=== PATIENT | male | born 1980 | race Caucasian/White ===

== ENCOUNTER 2018-09-06 20:34 | Inpatient (IN) | payer SELFPAY ==
[~2018-09-06] VITALS: Ht 182.9 cm; Wt 102.5 kg
[2018-09-06 00:45] VITALS: BP 152/76
[2018-09-06 20:45] VITALS: BP 136/64
--- NOTE | 2018-09-06 20:45 | NUR ---
TO BED # 2 AMBULATORY, REPORT GIVEN TO LETHA MONAE
--- NOTE | 2018-09-06 20:47 | NUR ---
Andriy mari in [facility] - 09/06/18 at 2049 by ALDO PT TAKEN TO BED 2
--- NOTE | 2018-09-06 20:59 | NUR ---
38/M presents to ED with complaints of left lower abdominal pain swelling, erythema for the past 5 days. Patient states he had to leave work early because he could not stand the pain. Pt c/o severe pain. NAD noted. VSS. Pt denies N/V/D. Afebrile. AOX4, clear speech.
--- NOTE | 2018-09-06 22:20 | NUR ---
Dr. Molina evaluating patient at bedside.
[2018-09-06] MEDS ORDERED: NACL 0.9% 1,000 ML IV SCH (22:25)
[2018-09-06] MEDS ORDERED: cefTRIAXone 1,000 MG in DEXT 5% MINI-BAG PLUS 50 ML IV ONE (22:25)
[2018-09-06] MEDS ORDERED: MORPHINE SULFATE 4 MG/ML SYR IVP ONE (22:30)
[2018-09-06] MEDS ORDERED: cefTRIAXone 1,000 MG VIAL ONE (22:45)
[2018-09-06 23:00] LABS: HEMATOCRIT 37.3 % (36-52); HEMOGLOBIN 11.7 g/dL (12.0-18.0); MEAN CORPUSCULAR HEMOGLOBIN 28 pg (27-31); MEAN CORPUSCULAR HGB CONC 31 g/dL (33-37); MEAN CORPUSCULAR VOLUME 88.5 fL (80-94); PLATELET COUNT (AUTO) 568 K/uL (140-450); RED BLOOD CELL COUNT(AUTO) 4.21 MIL/uL (4.20-6.10); RED CELL DISTRIBUTION WIDTH 13.8 % (11.6-13.7)
--- NOTE | 2018-09-06 23:02 | NUR ---
Pt provided with a blanket, lights dimmed in room, call light left within reach. Pt expresses feeling better after pain medication.
[2018-09-06 23:09] LABS: LYMPHOCYTES % (MANUAL) 3 % (20-46); MONOCYTES % (MANUAL) 2 % (5-12)
[2018-09-06 23:11] LABS: ALBUMIN 2.3 g/dL (3.4-5.0); ANION GAP 9.2 (8-16); CARBON DIOXIDE 32.5 mmol/L (21-32); CREATININE 0.9 mg/dL (0.7-1.3); POTASSIUM 3.7 mmol/L (3.5-5.1); TOTAL BILIRUBIN 0.9 mg/dL (0.0-1.0)
--- NOTE | 2018-09-06 23:21 | NUR ---
Pt taken to CT via rdemar.
--- NOTE | 2018-09-06 23:40 | NUR ---
PT RETURN FROM CT
[2018-09-07] VITALS (10 sets, daily range): BP systolic 94–150; BP diastolic 56–72
[2018-09-07] MEDS ORDERED: MORPHINE SULFATE 4 MG/ML SYR IVP ONE (00:15)
[2018-09-07] MEDS ORDERED: NACL 0.9% 1,000 ML IV SCH (00:16)
[2018-09-07 00:19] LABS: APPEARANCE,URINE CLEAR (CLEAR); BILIRUBIN,URINE 1+ (NEGATIVE); BLOOD, URINE TRACE-I (NEGATIVE); COLOR,URINE YELLOW (YELLOW); LEUKOCYTE ESTERASE ,URINE NEGATIVE (NEGATIVE); NITRITE, URINE NEGATIVE (NEGATIVE); PH,URINE 5.5 (5.0-9.0); UGLUCOSE NEGATIVE (NEGATIVE)
[2018-09-07] MEDS ORDERED: LORazepam 2 MG/ML VIAL IM/IVP PRN (00:20)
[2018-09-07] MEDS ORDERED: ONDANSETRON 4 MG/2 ML VIAL IM/IVP PRN (00:20)
[2018-09-07] MEDS ORDERED: DOCUSATE SODIUM 100 MG GELCAP PO PRN (00:20)
[2018-09-07 00:29] LABS: HYALINE CASTS, URINE 0-10 /LPF (None Seen); RBC,URINE 0-5 (RARE) /HPF (0-5); WBC,URINE 0-5 (RARE) /HPF (0-5)
[2018-09-07] MEDS ORDERED: MORPHINE SULFATE 4 MG/ML SYR ONE (00:34)
[2018-09-07 00:40] LABS: BARBITURATE, URINE NEG. ng/ml (NEG <=200); BENZODIAZEPINE, URINE NEG. ng/mL (NEG <=200); CANNABINOID, URINE NEG. ng/mL (NEG <=50); COCAINE, URINE NEG. ng/mL (NEG <=300); OPIATE, URINE POS. ng/mL (NEG <=2000); PHENCYCLIDINE SCREEN,URINE NEG. ng/mL (NEG <=25)
--- NOTE | 2018-09-07 00:42 | NUR ---
Patient will be admitted to care of Dr. Olvera. Admited to Med/Surg. Will go to room 105A. Belongings list completed. Report to Leatha SPENCER. Patient transport to floor via gurney.
--- NOTE | 2018-09-07 00:45 | NUR ---
Admitted from ER TO MED SURGICAL UNIT , with chief complaint of REDNESS, PAIN AND SWELLING,ON THE LEFT SIDE OF ABDOMEN , 38 y/o ,Male, Cooperative, AWAKE, A/OX4. RESPIRATION EVEN AND UNLABORED. IV SALINE LOCK AT THE LEFT AC G20, PATENT AND INTACT. ABLE TO AMBULATE INDEPENDENTLY. REDNESS AND SWELLING NOTED AT THE LEFT ABDOMEN, TENDER TO TOUCH, PAIN IN THE SITE 2/10, WAS GIVEN PAIN MEDICATION IN ER. PLAN OF CARE DISCUSSED. VERBALIZED UNDERSTANDING. oriented to call light, bed, phone,television, bathroom, smoking policy,visiting hours, procedures, ID bracelet on. Belongings list checked.
[2018-09-07 00:52] LABS: MAGNESIUM 1.8 mg/dL (1.8-2.4); PHOSPHORUS 3.1 mg/dL (2.5-4.9); THYROID STIMULATING HORMONE 1.22 uIU/mL (0.34-3.74)
[2018-09-07 01:01] LABS: PROTHROMBIN TIME 13.1 secs (10.8-13.4)
--- NOTE | 2018-09-07 01:10 | NUR ---
Patient's Plan of Care was discussed and reviewed with HORSE RIDING COACH OR INSTRUCTOR: JANE.
[2018-09-07] MEDS ORDERED: PIPERACILLIN/TAZOBACTAM 3.375 GM VIAL IV ONE ×2 (01:40→05:44)
[2018-09-07] MEDS: ACETAMINOPHEN 325 MG TAB PO PRN ×2 (01:45→08:47)
[2018-09-07] MEDS: DEXT 5% / NACL 0.9% 500 ML IV SCH ×2 (01:45→08:14)
--- NOTE | 2018-09-07 01:45 | NUR ---
TEMPERATURE CHECKED - 100.2 F, MEDICATED WITH TYLENOL 650MG. PO ORDERED. NPO, ICE CHIPS GIVEN.
[2018-09-07] MEDS: PIPER/TAZO 3.375GM/D5W PREMIX 50 ML IV SCH ×4 (01:50→18:45)
--- NOTE | 2018-09-07 01:50 | NUR ---
MEDICATED WITH ZOSYN PER MD ORDER BY DOV HOLLEY. WILL MONITOR FOR ANY REACTION.
[2018-09-07] MEDS ORDERED: INFLUENZA VIRUS VACCINE QUAD 0.5 ML SYR IMVAC PRN (02:10)
--- NOTE | 2018-09-07 02:30 | NUR ---
NO ALLERGIC REACTION NOTED.
[2018-09-07] MEDS ORDERED: BENZONATATE 100 MG CAPLF PO PRN (04:40)
[2018-09-07 06:52] LABS: HEMATOCRIT 32.9 % (36-52); HEMOGLOBIN 10.4 g/dL (12.0-18.0); MEAN CORPUSCULAR HEMOGLOBIN 28 pg (27-31); MEAN CORPUSCULAR HGB CONC 32 g/dL (33-37); MEAN CORPUSCULAR VOLUME 88.8 fL (80-94); PLATELET COUNT (AUTO) 476 K/uL (140-450); RED CELL DISTRIBUTION WIDTH 13.9 % (11.6-13.7); WHITE BLOOD COUNT (AUTO) 18.9 K/uL (4.8-10.8)
--- NOTE | 2018-09-07 07:00 | NUR ---
DR. GRIFFITH SPOKE WITH PATIENT, PLANNING TO DO SURGERY.
--- NOTE | 2018-09-07 07:10 | NUR ---
ENDORSED TO AM SHIFT NURSE FOR CONTINUITY OF CARE.
--- NOTE | 2018-09-07 07:11 | NUR ---
RECEIVED BEDSIDE REPORT FROM SPRING UPHOLSTERER NURSE. PATIENT IS AWAKE, ALERT AND ORIENTEDX4. NO SIGNS OF DISTRESS ON RA. SKIN IS INTACT, ABSCESS ON ABD. PATIENT NPO FOR I&D TODAY. CONSENT WILL BE OBTAINED. GAIT IS STEADY. PATIENT IS CONTINENT. MED SURGE. IV ON L AC 20G INFUSING D5NS AT 70. CLEAN, DRY AND INTACT. NO COMPLAINTS AT THIS TIME. BED IN LOW POSITION. CALL LIGHT WITHIN REACH, WILL CONTINUE TO MONITOR THE PATIENT
[2018-09-07 07:24] LABS: CARBON DIOXIDE 31.9 mmol/L (21-32); CREATININE 0.9 mg/dL (0.7-1.3); POTASSIUM 3.9 mmol/L (3.5-5.1)
[2018-09-07 07:26] LABS: MAGNESIUM 1.7 mg/dL (1.8-2.4); PHOSPHORUS 4.6 mg/dL (2.5-4.9)
[2018-09-07 07:41] LABS: LYMPHOCYTES % (MANUAL) 8 % (20-46); MONOCYTES % (MANUAL) 5 % (5-12)
[2018-09-07] MEDS: LACTOBACILLUS RHAMNOSUS GG 1 EACH CAP PO SCH (08:55)
--- NOTE | 2018-09-07 08:59 | NUR ---
ADMINISTERED MEDS. ADMINISTERED PRN TYLENOL FOR FEVER OF 101.2. PATIENT TOLERATED WELL. WILL CONTINUE TO MONITOR THE PATIENT. PATIENT AMBULATED TO THE RESTROOM AND BACK TO BED.
[2018-09-07] MEDS ORDERED: ALBUTEROL SULFATE/IPRATROPIU 3 ML SOL IH PRN (09:10)
--- NOTE | 2018-09-07 10:00 | NUR ---
PATIENT SALINE LOCKED, AND PICKED UP BY OR NURSES. PATIENT LEFT IN STABLE CONDITION
[2018-09-07] MEDS ORDERED: ONDANSETRON 4 MG/2 ML VIAL ONE (10:18)
[2018-09-07] MEDS ORDERED: LIDOCAINE 2% 100 MG/5 ML SYR IVP ONE (10:18)
[2018-09-07] MEDS ORDERED: PROPOFOL 200 MG/20 ML VIAL IV ONE (10:18)
[2018-09-07] MEDS ORDERED: SUCCINYLCHOLINE CHLORIDE 200 MG/10 ML VIAL IVP ONE (10:18)
[2018-09-07] MEDS ORDERED: DEXAMETHASONE 4 MG/ML VIAL ONE (10:18)
[2018-09-07] MEDS ORDERED: KETOROLAC 30 MG/ML VIAL ONE (10:18)
[2018-09-07] MEDS ORDERED: DESFLURANE 240 ML BTL INH ONE (10:18)
[2018-09-07] MEDS ORDERED: BUPIVACAINE-MPF 0.25% 30 ML VIAL INJ ONE (10:29)
[2018-09-07] MEDS ORDERED: fentaNYL 0.05 MG/ML VIAL ONE (10:35)
[2018-09-07] MEDS ORDERED: MIDAZOLAM 2 MG/2 ML VIAL ONE (10:35)
[2018-09-07] MEDS ORDERED: ONDANSETRON 4 MG/2 ML VIAL IVP PRN (11:00)
[2018-09-07] MEDS ORDERED: HYDROmorphone 1 MG/ML AMP IVP PRN (11:00)
--- NOTE | 2018-09-07 13:02 | NUR ---
PATIENT BACK FROM OR. PATIENT IS STABLE CONDITION. L ABD ABSCESS I&D DONE. PACKED AND ABD PAD W ABD BINDER. VITALS WITHIN NORMAL LIMITS
--- NOTE | 2018-09-07 14:43 | NUR ---
PATIENT IN NO SIGNS OF DISTRESS. BED IN LOW POSITION. CALL LIGHT WITHIN REACH, WILL CONTINUE TO MONITOR THE PATIENT
--- NOTE | 2018-09-07 15:10 | NUR ---
FAMILY AT BEDSIDE. WILL CONTINUE TO MONITOR
--- NOTE | 2018-09-07 17:00 | NUR ---
PATIENT IS SLEEPING. NO SIGNS OF DISTRESS. WILL CONTINUE TO MONITOR
[2018-09-07] MEDS: NACL 0.9% 1,000 ML IV SCH (18:39)
--- NOTE | 2018-09-07 18:50 | NUR ---
ADMINISTERED MEDS. PATIENT TOLERATED WELL.
[2018-09-07] MEDS ORDERED: MAGNESIUM OXIDE 400 MG TAB PO SCH (19:00)
--- NOTE | 2018-09-07 19:30 | NUR ---
GAVE BEDSIDE REPORT FROM FACILITIES MAINTENANCE TECHNICIAN NURSE. PATIENT ENDORSED IN STABLE CONDITION
--- NOTE | 2018-09-07 19:31 | NUR ---
RECD. RESTING IN BED, AWAKE, A/OX4. RESPIRATION EVEN AND UNLABORED. WATCHING TV. IV OF NS AT 60 ML/HR INFUSING, LEFT AC G20. INCISION IN THE LEFT ABDOMEN COVERED WITH DRESSING WITH ABDOMINAL BINDER, DRY AND INTACT. ON BILATERAL LEG SEQUENTIALS. TOLERATING CLEAR LIQUIDS. ADVISED TO GO OUT OF BED AND AMBULATE. PLAN OF CARE FOR THE SHIFT DISCUSSED. VERBALIZED UNDERSTANDING. DENIES PAIN 0/10.
--- NOTE | 2018-09-07 20:00 | NUR ---
Patient's Plan of Care was discussed and reviewed with FOAM MOLDER: STEVE LARA
[2018-09-08] VITALS: BP 120/60
--- NOTE | 2018-09-08 | NUR ---
SLEEPING COMFORTABLY IN BED.
[2018-09-08] MEDS: PIPER/TAZO 3.375GM/D5W PREMIX 50 ML IV SCH ×4 (00:12→17:29)
[2018-09-08] MEDS: HYDROcodone/APAP 5/325 MG 1 TAB TAB PO PRN ×2 (01:04→06:42)
[2018-09-08 04:00] VITALS: BP 106/58
--- NOTE | 2018-09-08 04:00 | NUR ---
ENCOURAGED TO TURN ALTERNATELY TO SIDES. DEMONSTRATED HOW TO USE INCENTIVE SPIROMETER. WANTS TO DO IT DURING THE MORNING.
--- NOTE | 2018-09-08 06:45 | NUR ---
AWAKE IN BED, DR. MORRIS CAME AND CHECKED PATIENT. COMPLAINT OF SWEATING, TEMPERATURE CHECKED - 97.9F. CONDITION REMAIN STABLE. WILL ENDORSED TO AM NURSE FOR CONTINUITY OF CARE.
[2018-09-08 06:50] LABS: CHOL/HDL RATIO 5.9 (1-4.5)
--- NOTE | 2018-09-08 07:20 | NUR ---
RECEIVED PT FROM SHIP PILOT NURSE, PT IS AWAKE AND LYING ON THE BED WITH SIDE RAILS UP AND CALL LIGHT WITHIN REACH, PT HAS AN IV LINE ON THE LEFT AC G. 20 WITH NS INFUSING AT 60ML/HR, INTACT, PT IS S/P I&D OF THE ABDOMINAL ABSCESS WITH ABDOMINAL BINDER IN PLACE, PT VERBALIZED A TOLERABLE PAIN LEVEL OF 4/10. NO SIGN OF DISTRESS NOTED AND WILL CONTINUE TO MONITOR PT.
--- NOTE | 2018-09-08 07:50 | NUR ---
PT IS AWAKE AND VITAL SIGNS TAKEN AND IS WITHIN NORMAL LIMIT. NO SIGN OF DISTRESS NOTED AND WILL CONTINUE TO MONITOR PT.
[2018-09-08 08:00] VITALS: BP 105/54
[2018-09-08] MEDS ORDERED: MAG SULF 2000 MG/WATER PREMIX 50 ML IV SCH (08:00)
--- NOTE | 2018-09-08 08:23 | NUR ---
PATIENT HAS BEEN SCREENED AND CATEGORIZED HIGH NUTRITION RISK. PATIENT WILL BE SEEN WITHIN 1-2 DAYS OF ADMISSION. 09/08/[address]
[2018-09-08] MEDS: LORATADINE 10 MG TAB PO SCH (09:55)
[2018-09-08] MEDS: LACTOBACILLUS RHAMNOSUS GG 1 EACH CAP PO SCH (09:55)
--- NOTE | 2018-09-08 10:02 | NUR ---
PT IS AWAKE AND MOTHER ON THE BEDSIDE, ORAL MEDICATIONS GIVEN, V/S TAKEN PARAMETER AND IS WITHIN NORMAL LIMIT.NO SIGN OF DISTRESS NOTED AND WILL MONITOR PT.
[2018-09-08 12:00] VITALS: BP 110/55
--- NOTE | 2018-09-08 12:37 | NUR ---
PT AAO, ANTIBIOTIC ONGOING WELL TOLERATED.
--- NOTE | 2018-09-08 14:38 | NUR ---
09/08/18 RD INITIAL ASSESSMENT COMPLETED PLEASE REFER TO NUTRITION ASSESSMENT UNDER CARE ACTIVITY FOR ESTIMATED NUTRITIONAL NEEDS. 1. CONTINUE FULL LIQUID DIET TOLERATED 2. RD PROVIDED NUTRITION EDUCATION ON HEALTHY CHOLESTEROL 3. WHEN PATIENT IS ABLE TO TOLERATE A FULL LIQUID DIET CONSIDER ADVANCING TO A HIGH FIBER REGULAR DIET 4. RD TO FOLLOW-UP 5-7 DAYS, LOW RISK JANETH KRISHNAMURTHY, RD
[2018-09-08 16:00] VITALS: BP 112/62
[2018-09-08] MEDS: MORPHINE SULFATE 2 MG/ML SYR IVP PRN ×2 (16:23→20:39)
[2018-09-08] MEDS: NACL 0.9% 1,000 ML IV SCH (16:36)
--- NOTE | 2018-09-08 17:30 | NUR ---
PT IS AWAKE AND IV ZOSYN WAS GIVEN VIA PIGGYBACK AND PT TOLERATED IT. NO SIGN OF DISTRESS NOTED ON THE PT, DENIES PAIN NOW AND WILL MONITOR PT.
--- NOTE | 2018-09-08 18:15 | NUR ---
PT'S ABDOMINAL BINDER WAS SOAKED WITH DRAINAGE, DR. ROBLEDO MADE A VERBAL ORDER TO CHANGE AND REINFORCED SURGICAL WOUND WITH A CLEAN DRESSING AND ABDOMINAL BINDER.
--- NOTE | 2018-09-08 19:15 | NUR ---
ENDORSED PT TO CLINICAL PROJECT ASSISTANT NURSEMARY GRACE FOR CONTINUITY OF CARE. PT IS STABLE AT THIS TIME.
--- NOTE | 2018-09-08 19:16 | NUR ---
RECEIVED BEDSIDE REPORT FROM DAY SHIFT RN. PT IS A&OX4. ON ROOM AIR. NO S/S OF DISTRESS. PT HAS IV LINE ON THE LEFT AC G. 20 WITH NS INFUSING AT 60ML/HR. PT IS S/P I&D OF THE ABDOMINAL ABSCESS WITH DR GRIFFITH ON 09/07/18. HAS ABDOMINAL BINDER IN PLACE PT VERBALIZED A TOLERABLE PAIN LEVEL OF 5/10. DOESNT WANT PAIN MEDICATION AT THIS TIME. CALL LIGHT WITHIN REACH. WILL CONTINUE TO MONITOR PT.
[2018-09-08] MEDS: PSYLLIUM 12.2 GM/PKT PO SCH (20:41)
--- NOTE | 2018-09-08 20:41 | NUR ---
DUE MEDICATION GIVEN. REINFORCED DRESSING. HAD MODERATE PURULENT DRAINAGE. WILL CONTINUE TO MONITOR. CALL LIGHT WITHIN REACH.
[2018-09-08] MEDS: ZOLPIDEM 5 MG TAB PO PRN (21:09)
[2018-09-09] VITALS: BP 115/67
[2018-09-09] MEDS: PIPER/TAZO 3.375GM/D5W PREMIX 50 ML IV SCH ×5 (00:02→23:47)
--- NOTE | 2018-09-09 00:02 | NUR ---
VS ARE WITHIN NORMAL LIMITS. ZOSYN NOW INFUSING PER ORDERS. ALL NEEDS MET AT THIS TIME. CALL LIGHT WITHIN REACH.
--- NOTE | 2018-09-09 01:56 | NUR ---
PT SLEEPING NO S/S OF DISTRESS. WILL CONTINUE TO MONITOR.
--- NOTE | 2018-09-09 03:23 | NUR ---
PT SLEEPING NO S/S OF DISTRESS. WILL CONTINUE TO MONITOR.
--- NOTE | 2018-09-09 05:16 | NUR ---
ZOSYN NOW INFUSING PER ORDERS. REINFORCED PTS DRESSING. PT TOLERATED WELL. CALL LIGHT WITHIN REACH. WILL CONTINUE TO MONITOR.
[2018-09-09] MEDS: NACL 0.9% 1,000 ML IV SCH ×2 (05:17→20:26)
[2018-09-09] MEDS: HYDROcodone/APAP 5/325 MG 1 TAB TAB PO PRN (05:30)
[2018-09-09 06:41] LABS: ANION GAP 10.7 (8-16); CARBON DIOXIDE 30.1 mmol/L (21-32); CREATININE 0.7 mg/dL (0.7-1.3); POTASSIUM 3.8 mmol/L (3.5-5.1)
[2018-09-09 06:54] LABS: PHOSPHORUS 3.6 mg/dL (2.5-4.9)
[2018-09-09] MEDS ORDERED: HYDROcodone/APAP 5/325 MG 1 TAB TAB PO PRN (06:55)
[2018-09-09] MEDS: MORPHINE SULFATE 2 MG/ML SYR IVP PRN ×2 (07:01→09:50)
--- NOTE | 2018-09-09 07:22 | NUR ---
ENDORSED PT TO DAY SHIFT RN. PT IS IN STABLE CONDITION. SAFETY MEASURES ARE IN PLACE.
--- NOTE | 2018-09-09 07:27 | NUR ---
RECEIVED PT FROM UNDERWRITING ASSISTANT NURSEMARY GRACE, PT IS AWAKE AND LYING ON THE BED WITH SIDE RAILS UP AND CALL LIGHT WITHIN REACH, PT PONCE A PERIPHERAL LINE ON THE LEFT AC G. 20 WITH NS INFUSING AT 60ML/HR, INTACT. PT VERBALIZED A PAIN RATE OF 8/10 ON THE LEFT ABDOMINAL SIDE AND WILL MEDICATE, NO OTHER UNTOWARD SYMPTOM NOTED AND WILL CONTINUE TO MONITOR PT.
[2018-09-09 08:00] VITALS: BP 115/58
[2018-09-09 08:18] LABS: BASOPHILS # (AUTO) 0.1 K/uL (0.00-0.22); BASOPHILS % (AUTO) 0.5 % (0.0-2.0); EOSINOPHILS # (AUTO) 0.1 K/uL (0-0.4); EOSINOPHILS % (AUTO) 1.1 % (0.0-4.0); HEMATOCRIT 29.1 % (36-52); HEMOGLOBIN 9.2 g/dL (12.0-18.0); LYMPHOCYTES # (AUTO) 1.9 K/uL (2.0-11.5); LYMPHOCYTES % (AUTO) 15.5 % (20.5-51.1); MEAN CORPUSCULAR HEMOGLOBIN 28 pg (27-31); MEAN CORPUSCULAR HGB CONC 32 g/dL (33-37); MEAN CORPUSCULAR VOLUME 89.3 fL (80-94); MONOCYTES # (AUTO) 0.7 K/uL (0.8-1.0); MONOCYTES % (AUTO) 6.1 % (1.7-9.3); NEUTROPHILS # (AUTO) 9.5 K/uL (1.8-7.7); NEUTROPHILS % (AUTO) 76.8 % (42.2-75.2); PLATELET COUNT (AUTO) 477 K/uL (140-450); RED BLOOD CELL COUNT(AUTO) 3.26 MIL/uL (4.20-6.10); RED CELL DISTRIBUTION WIDTH 14.2 % (11.6-13.7); WHITE BLOOD COUNT (AUTO) 12.3 K/uL (4.8-10.8)
[2018-09-09] MEDS: LORATADINE 10 MG TAB PO SCH (09:48)
[2018-09-09] MEDS: LACTOBACILLUS RHAMNOSUS GG 1 EACH CAP PO SCH (09:48)
[2018-09-09] MEDS: PSYLLIUM 12.2 GM/PKT PO SCH ×2 (09:49→20:25)
[2018-09-09] MEDS: ENOXAPARIN 40 MG/0.4 ML SYR SUBQ SCH (09:51)
--- NOTE | 2018-09-09 11:23 | NUR ---
PT IS AWAKE AND IV ZOSYN WAS GIVEN VIA PIGGYBACK. NO SIGN OF DISTRESS NOTED AND WILL MONITOR PT.
[2018-09-09 16:00] VITALS: BP 124/75
--- NOTE | 2018-09-09 16:30 | NUR ---
PT GOT UP AND WAS ASSISTED TO SIT ON THE CHAIR AND AMBULATED TO THE BATHROOM, NO SOB NOTED AND PT TOLERATED IT. NO SIGN OF DISTRESS NOTED AND WILL MONITOR PT.
--- NOTE | 2018-09-09 17:35 | NUR ---
PT IS AWAKE AND ASSISTED TO AMBULATE TO THE BATHROOM AND BACK TO THE CHAIR, PT DENIES SOB AND VERBALIZED A TOLERABLE PAIN WHILE WALKING, IV ZOSYN WAS GIVEN VIA PIGGYBACK, PT'S DINNER TRAY WAS SERVED. NO SIGN OF DISTRESS NOTED AND WILL MONITOR PT.
--- NOTE | 2018-09-09 19:20 | NUR ---
ENDORSED PT TO PSYCHOLOGIST PRIVATE PRACTICE NURSEMARY GRACE FOR CONTINUITY OF CARE, PT IS STABLE AT THIS TIME.
--- NOTE | 2018-09-09 19:21 | NUR ---
RECEIVED BEDSIDE REPORT FROM DAY SHIFT RN. PT IS A&OX4. ON ROOM AIR. NO S/S OF DISTRESS. PT HAS IV LINE ON THE LEFT AC G. 20 WITH NS INFUSING AT 60ML/HR. PT IS S/P I&D OF THE ABDOMINAL ABSCESS WITH DR GRIFFITH ON 09/07/18. HAS ABDOMINAL BINDER IN PLACE. DRESSING IS INTACT AND DRY. PT VERBALIZED A TOLERABLE PAIN LEVEL OF 2/10. DOESN'T WANT PAIN MEDICATION AT THIS TIME. CALL LIGHT WITHIN REACH. WILL CONTINUE TO MONITOR PT.
--- NOTE | 2018-09-09 20:25 | NUR ---
DUE MEDICATIONS GIVEN. PT TOLERATED WELL. ALL NEEDS MET AT THIS TIME. CALL LIGHT WITHIN REACH.
[2018-09-09] MEDS: ZOLPIDEM 5 MG TAB PO PRN (22:32)
--- NOTE | 2018-09-09 22:32 | NUR ---
JONATAN ADMINISTERED. PT STATES IT HELPED HIM SLEEP LAST NIGHT. AND HAS BEEN HAVING DIFFICULTY SLEEPING SINCE ADMISSION. WILL CONTINUE TO MONITOR.
--- NOTE | 2018-09-09 23:47 | NUR ---
VITAL SIGNS ARE WITHIN NORMAL LIMITS. ZOSYN NOW INFUSING PER ORDERS. ALL NEEDS MET AT THIS TIME. WILL CONTINUE TO MONITOR.
[2018-09-10 00:03] VITALS: BP 122/70
--- NOTE | 2018-09-10 02:30 | NUR ---
PT SLEEPING COMFORTABLY IN BED. CALL LIGHT WITHIN REACH.
[2018-09-10] MEDS: HYDROcodone/APAP 5/325 MG 1 TAB TAB PO PRN ×2 (03:29→09:27)
[2018-09-10] MEDS: PIPER/TAZO 3.375GM/D5W PREMIX 50 ML IV SCH ×4 (05:10→23:33)
--- NOTE | 2018-09-10 05:10 | NUR ---
ZOSYN NOW INFUSING PER ORDERS. CALL LIGHT WITHIN REACH.
[2018-09-10 06:00] LABS: BASOPHILS # (AUTO) 0.1 K/uL (0.00-0.22); BASOPHILS % (AUTO) 0.6 % (0.0-2.0); EOSINOPHILS # (AUTO) 0.3 K/uL (0-0.4); EOSINOPHILS % (AUTO) 2.8 % (0.0-4.0); HEMATOCRIT 30.3 % (36-52); HEMOGLOBIN 9.6 g/dL (12.0-18.0); LYMPHOCYTES # (AUTO) 1.9 K/uL (2.0-11.5); LYMPHOCYTES % (AUTO) 18.9 % (20.5-51.1); MEAN CORPUSCULAR HEMOGLOBIN 28 pg (27-31); MEAN CORPUSCULAR HGB CONC 32 g/dL (33-37); MEAN CORPUSCULAR VOLUME 89.1 fL (80-94); MONOCYTES # (AUTO) 0.9 K/uL (0.8-1.0); MONOCYTES % (AUTO) 8.5 % (1.7-9.3); NEUTROPHILS % (AUTO) 69.2 % (42.2-75.2); PLATELET COUNT (AUTO) 475 K/uL (140-450); RED CELL DISTRIBUTION WIDTH 13.8 % (11.6-13.7); WHITE BLOOD COUNT (AUTO) 10.1 K/uL (4.8-10.8)
[2018-09-10 06:13] LABS: ANION GAP 10.1 (8-16); CARBON DIOXIDE 27.3 mmol/L (21-32); CREATININE 0.8 mg/dL (0.7-1.3); POTASSIUM 4.4 mmol/L (3.5-5.1)
[2018-09-10 06:18] LABS: MAGNESIUM 1.7 mg/dL (1.8-2.4); PHOSPHORUS 3.7 mg/dL (2.5-4.9)
--- NOTE | 2018-09-10 07:10 | NUR ---
RECEIVED PT REPORT FROM GLUER NURSE. PT IS ALERT AND AWAKE, NO S/S OF ACUTE DISTRESS. PT IS ON ROOM AIR. SKIN INTACT EXCEPT FOR THE SURGICAL INCISION ON HIS LOWER L ABDOMEN. IV SITE NOTED ON THE L AC, 20 G, INFUSING NS 60 ML/HR. PT IS AMBULATORY. CALL LIGHT WITHIN REACH. WILL CONTINUE TO MONITOR.
--- NOTE | 2018-09-10 07:15 | NUR ---
ENDORSED PT TO DAY SHIFT RN. PT IS IN STABLE CONDITION.
[2018-09-10 08:00] VITALS: BP 122/73
[2018-09-10] MEDS ORDERED: LACT10CA PO (08:13)
[2018-09-10] MEDS ORDERED: ACET-787 PO (08:13)
[2018-09-10] MEDS ORDERED: DOCU-299 PO (08:13)
[2018-09-10] MEDS ORDERED: METPCK PO (08:13)
[2018-09-10] MEDS: LORATADINE 10 MG TAB PO SCH (09:13)
[2018-09-10] MEDS: LACTOBACILLUS RHAMNOSUS GG 1 EACH CAP PO SCH (09:13)
[2018-09-10] MEDS: PSYLLIUM 12.2 GM/PKT PO SCH (09:13)
[2018-09-10] MEDS: ENOXAPARIN 40 MG/0.4 ML SYR SUBQ SCH (09:14)
--- NOTE | 2018-09-10 10:50 | NUR ---
PT EVALUATED BY THE WOUND CARE NURSE AT THIS TIME.
[2018-09-10] MEDS: MORPHINE SULFATE 2 MG/ML SYR IVP PRN ×2 (10:53→19:10)
--- NOTE | 2018-09-10 11:05 | NUR ---
BROWN DRAINAGE NOTED ON THE GAUZE PACKING. DR GRIFFITH CALLED IN TO LOOK AT THE PT'S WOUND. PICTURE TAKEN. WOUND CARE NURSE REPACKING PT'S WOUND AT THIS TIME. PT WAS PREMEDICATED WITH IV MORPHINE DUE TO SEVERE PAIN DURING DRESSING CHANGE.
--- NOTE | 2018-09-10 11:10 | NUR ---
WOUND CARE EVALUATION NOTES: REASON FOR EVALUATION: S/P I&D LUQ ABDOMINAL WOUND SKIN ASSESSMENT DONE ON THIS 38 Y/O MALE PATIENT FROM HOME TO [facility], WITH INITIAL DIAGNOSIS OF ABDOMINAL ABSCESS. PAST MEDICAL HISTORY OBESITY. ALL ABOVE INFORMATION WAS OBTAINED FROM THE ADMISSION H&P. PATIENT IS AWAKE, ORIENTED TO PERSON, PLACE, DATE AND TIME. SKIN WARM TO TOUCH WNL, BLE ARE DRY AND WITH HAIR GROWTH. LEFT ARM PERIPHERAL IV PATENT AND INTACT. ON ROOM AIR. INITIAL PLAN OF CARE AND WOUND CARE DRESSING CHANGE DISCUSSED, PT ABLE TO VERBALIZE UNDERSTANDING. DRESSING CHANGE WITH DR. RIBERA AND NOTIFIED HIM OF UNUSUAL DRAINAGE COLOR, DARK BROWN AND YELLOW FECAL MATERIAL LIKED DRAINAGE, DR. GRIFFITH WAS PAGED AND CAME TO BED SIDE SHORTLY. MOTHER IS AT BED SIDE VISIT WHILE DR. GRIFFITH ARRIVAL. ALL TREATMENT PLANS DISCUSSED WITH PT, MOTHER AND DR. CASTILLO. NO WOUND VAC, NO CT SCAN AT THIS TIME, PER SUSPECT OF FISTULA. PER DR. GRIFFITH PACK WOUND WITH BULKEE ROLL DRESSING AND CHANGE DAILY. ASSIST DRESSING CHANGE WITH SURGICAL STUDENT, PT�S PAIN 8/10 AND PT. WAS MEDICATED X2 FOR IV MORPHINE, PT. TOLERATED PROCEDURES WELL. INTEGUMENTARY: -LUQ ABDOMINAL SURGICAL WOUND [id number], WOUND BED 100% GRANULATING TISSUE MODERATE AMOUNT OF PURULENT DRAINAGE, MILD ODOR, LUPE-WOUND SKIN INTACT AND WELL DEFINED, PAIN 8/10 RECOMMENDATIONS: -IRRIGATE LUQ ABDOMINAL SURGICAL WOUND WITH NS, PACK WOUND WITH BULKEE ROLL DRESSING AND COVER WITH ABD PAD, SECURE WITH TAPE QD AND PRN IF SOILING -APPLY ABDOMINAL BINDER AT ALL TIMES -TURN AND REPOSITION Q 2H -ASSESS AND MONITOR SKIN CONDITION DURING POSITION CHANGE, PLEASE REMING PT. TO HOLD ABDOMINAL SURGICAL WOUND WHILE CHANGING POSITION RECOMMENDATIONS DISCUSSED WITH PRIMARY RN WILL FOLLOW UP PATIENT Q7 DAYS AND PRN. PLEASE CONTACT WOUND CARE NURSE FOR ANY QUESTIONS AND CHANGES IN SKIN CONDITION.
[2018-09-10] MEDS ORDERED: MORPHINE SULFATE 2 MG/ML SYR IVP SCH (11:30)
[2018-09-10] MEDS ORDERED: DEXT 5% /NACL 0.9% 1,000 ML IV SCH (11:45)
--- NOTE | 2018-09-10 11:49 | NUR ---
MEASURED PT'S ORTHOSTATIC BP: SITTING 133/78, STANDING 128/81
--- NOTE | 2018-09-10 12:15 | NUR ---
OBTAINED PT'S CONSENT FOR ABD/PELVIS CT SCAN WITH CONTRAST.
--- NOTE | 2018-09-10 13:28 | NUR ---
PT SITTING UP IN CHAIR, DRINKING CONTRAST SOLUTION. PT AWARE THAT HE NEEDS TO FINISH DRINKING THE CONTRAST SOLUTION BY 15:00. NO S/S OF ACUTE DISTRESS, NO SOB, NO C/O PAIN AT THIS TIME. WILL CONTINUE TO MONITOR.
[2018-09-10 16:00] VITALS: BP 122/75
--- NOTE | 2018-09-10 16:48 | NUR ---
PT FINISHED DRINKING ALL OF THE CONTRAST LIQUID.
--- NOTE | 2018-09-10 17:42 | NUR ---
PT OFF UNIT FOR ABD/PELVIS CT SCAN WITH CONTRAST
--- NOTE | 2018-09-10 18:10 | NUR ---
PT BACK ON UNIT FROM CT SCAN
--- NOTE | 2018-09-10 19:20 | NUR ---
REPORT GIVEN TO CYBER OPS PLANNER NURSE. PT'S ABD DRESSING IS CLEAN AND INTACT. PT ENDORSED IN STABLE CONDITION.
--- NOTE | 2018-09-10 19:21 | NUR ---
RECD. RESTING IN BED, AWAKE, A/OX4. RESPIRATION EVEN AND UNLABORED. IV OF D5NS INFUSING AT 100 ML/HR, LEFT AC G20. INCISION IN THE LEFT ABDOMEN COVERED WITH DRESSING WITH ABDOMINAL BINDER, DRY AND INTACT. AMBULATORY TO THE BATHROOM. PAIN IN THE ABDOMEN 03/07, WAS MEDICATED BY AM NURSE AT 1910. PLAN OF CARE FOR THE SHIFT DISCUSSED. VERBALIZED UNDERSTANDING.
[2018-09-10] MEDS: NACL 0.9% 1,000 ML IV SCH (20:25)
--- NOTE | 2018-09-10 21:00 | NUR ---
CRAVING FOR FOOD, EXPLAINED MD ORDERED NPO, FOR POSSIBLE CT OF ABDOMEN TO VERIFY FISTULA.
--- NOTE | 2018-09-10 21:30 | NUR ---
Patient's Plan of Care was discussed and reviewed with ACCOUNTS PAYABLE MANAGER: STEVE LARA
[2018-09-10] MEDS: ZOLPIDEM 5 MG TAB PO PRN (22:14)
--- NOTE | 2018-09-10 22:15 | NUR ---
UNABLE TO SLEEP, MEDICATED WITH AMBIEN 5 MG.PO.
[2018-09-11 00:56] VITALS: BP 108/61
[2018-09-11] MEDS: NACL 0.9% 1,000 ML IV SCH ×3 (03:18→17:59)
--- NOTE | 2018-09-11 04:00 | NUR ---
ASSISTED OUT OF BED TO GO TO BR TO VOID, GAIT STEADY.
--- NOTE | 2018-09-11 05:00 | NUR ---
INFORMED PATIENT MD CHANGED HIS DIET TO FULL LIQUID DIET.
[2018-09-11] MEDS: PIPER/TAZO 3.375GM/D5W PREMIX 50 ML IV SCH ×4 (05:10→23:04)
[2018-09-11 06:28] LABS: BASOPHILS # (AUTO) 0.1 K/uL (0.00-0.22); BASOPHILS % (AUTO) 0.7 % (0.0-2.0); EOSINOPHILS # (AUTO) 0.3 K/uL (0-0.4); EOSINOPHILS % (AUTO) 3.1 % (0.0-4.0); HEMATOCRIT 30.8 % (36-52); HEMOGLOBIN 9.9 g/dL (12.0-18.0); LYMPHOCYTES # (AUTO) 1.9 K/uL (2.0-11.5); LYMPHOCYTES % (AUTO) 18.3 % (20.5-51.1); MEAN CORPUSCULAR HEMOGLOBIN 29 pg (27-31); MEAN CORPUSCULAR HGB CONC 32 g/dL (33-37); MEAN CORPUSCULAR VOLUME 88.6 fL (80-94); MONOCYTES # (AUTO) 0.8 K/uL (0.8-1.0); MONOCYTES % (AUTO) 7.4 % (1.7-9.3); NEUTROPHILS # (AUTO) 7.4 K/uL (1.8-7.7); NEUTROPHILS % (AUTO) 70.5 % (42.2-75.2); PLATELET COUNT (AUTO) 503 K/uL (140-450); RED BLOOD CELL COUNT(AUTO) 3.47 MIL/uL (4.20-6.10); RED CELL DISTRIBUTION WIDTH 13.8 % (11.6-13.7); WHITE BLOOD COUNT (AUTO) 10.6 K/uL (4.8-10.8)
[2018-09-11 06:33] LABS: MAGNESIUM 1.8 mg/dL (1.8-2.4); PHOSPHORUS 3.6 mg/dL (2.5-4.9)
[2018-09-11 06:39] LABS: ANION GAP 9.5 (8-16); CARBON DIOXIDE 26.6 mmol/L (21-32); CREATININE 0.7 mg/dL (0.7-1.3); POTASSIUM 4.1 mmol/L (3.5-5.1)
--- NOTE | 2018-09-11 07:30 | NUR ---
PATIENT WAS SLEEPING COMFORTABLY, EASILY AROUSABLE BY NAME. RESPIRATION EVEN, UNLABOR ON ROOM AIR. SKIN DRY AND WARM. IV PATENT AND INTACT. DRESSING WAS INTACT, SATURATED WITH DRAINAGE, WILL CHANGE DRESSING PER ORDER. PLAN OF CARE WAS DISCUSSED WITH PATIENT. BED AT LOW POSITION, SIDE RAILS UP. CALL LIGHT WITHIN REACH.
--- NOTE | 2018-09-11 07:35 | NUR ---
ENDORSED TO AM NURSE FOR CONTINUITY OF CARE.
[2018-09-11 08:00] VITALS: BP 117/61
--- NOTE | 2018-09-11 08:45 | NUR ---
PATIENT WAS AWAKE, ALERT. MEDS WERE GIVEN PER ORDER. WOUND DRESSING WAS CHANGED WITH ABDOMINAL PAD. PATIENT TOLERATED WELL
[2018-09-11] MEDS: MORPHINE SULFATE 2 MG/ML SYR IVP PRN ×2 (08:52→15:26)
[2018-09-11] MEDS: LORATADINE 10 MG TAB PO SCH (08:52)
[2018-09-11] MEDS: ENOXAPARIN 40 MG/0.4 ML SYR SUBQ SCH (08:53)
[2018-09-11] MEDS ORDERED: MORPHINE SULFATE 2 MG/ML SYR IVP PRN (10:20)
--- NOTE | 2018-09-11 12:15 | NUR ---
PATIENT WAS AWAKE, ALERT. RESPIRATION EVEN, UNLABOR ON ROOM AIR. NO DISTRESS NOTED AT THIS TIME
[2018-09-11] MEDS: GAUZE TP SCH (14:28)
--- NOTE | 2018-09-11 14:30 | NUR ---
PATIENT WAS SLEEPING COMFORTABLY. RESPIRATION EVEN, UNLABOR ON ROOM AIR. NO DISTRESS NOTED AT THIS TIME
[2018-09-11 16:00] VITALS: BP 130/75
[2018-09-11] MEDS ORDERED: MORPHINE SULFATE 2 MG/ML SYR IVP SCH (16:00)
--- NOTE | 2018-09-11 16:30 | NUR ---
WOUND DRESSING WAS CHANGED BY EMELYN MONAE. PAIN MEDS WERE GIVEN PER ORDER. DR. FRANCO WAS AT BEDSIDE. VS IS STABLE. PATIENT TOLERATED FAIRLY
--- NOTE | 2018-09-11 18:19 | NUR ---
PATIENT WAS AWAKE, ALERT, EATING DINNER COMFORTABLY. RESPIRATION EVEN, UNLABOR ON ROOM AIR. IV PATENT AND INTACT. IVF WAS CHANGED. MED WAS GIVEN PER ORDER. NO DISTRESS NOTED AT THIS TIME. CALL LIGHT WITHIN REACH
--- NOTE | 2018-09-11 19:24 | NUR ---
ENDORSEMENT GIVEN TO BOX TOE CUTTER NURSE. PATIENT IS STABLE AT THIS TIME.
--- NOTE | 2018-09-11 19:25 | NUR ---
RECEIVED PATIENT AWAKE SITTING AT BEDSIDE WITH IVF INFUSING WELL. PATIENT AA0X4, AMBULATORY. RESPIRATION EVEN AND UNLABORED. EXPLAINED PLAN OF CARE AND VERBALIZED UNDERSTANDING. FALL PRECAUTION APPLIED. CALL LIGHT WITHIN REACH. NO SIGN OF DISTRESS NOTED. WILL CONTINUE TO MONITOR.
--- NOTE | 2018-09-11 20:00 | NUR ---
V/S TAKEN AND RECORDED. DENIES PAIN AT THIS TIME. ABDOMINAL DRESSING DRY AND INTACT.PATIENT ABLE TO VERBALIZED HIS NEEDS. CALL LIGHTS WITHIN REACH. WILL CONTINUE TO MONITOR.
[2018-09-12] VITALS: BP 123/80
--- NOTE | 2018-09-12 | NUR ---
V/S TAKEN AND RECORDED WNL SCHEDULE MEDICATION GIVEN. DENIES PAIN. AT THIS TIME. CALL LIGHT WITHIN REACH. FALL PRECAUTION APPLIED. PATIENT BACK TO SLEEP. NO DISTRESS NOTED. WILL CONTINUE TO MONITOR.
--- NOTE | 2018-09-12 02:00 | NUR ---
CHECKED PATIENT ASLEEP BUT EASILY AROUSABLE. DENIES PAIN. ABDOMINAL BINDER IN PLACE FOR SUPPORT. HOURLY ROUNDING MADE. FALL PRECAUTION APPLIED. NO SIGN OF DISTRESS NOTED. WILL CONTINUE TO MONITOR.
--- NOTE | 2018-09-12 04:00 | NUR ---
AM CARE DONE BY RETURN AGENT AIRPORT. REPOSITIONED PATIENT IN COMFORTABLE POSITION. DENIES PAIN, ABDOMINAL BINDER IN PLACE. NO SIGN OF DISTRESS. SAFETY MEASURES IMPLEMENTED. CALL LIGHT WITHIN REACH. WILL CONTINUE TO MONITOR
[2018-09-12] MEDS: PIPER/TAZO 3.375GM/D5W PREMIX 50 ML IV SCH ×4 (04:53→23:10)
--- NOTE | 2018-09-12 07:03 | NUR ---
ENDORSEMENT GIVEN TO AM SHIFT RN AT BEDSIDE FOR CONTINUITY OF CARE. CALL LIGHT WITHIN REACH. ALL NEEDS ATTENDED. PATIENT IN STABLE CONDITION.
--- NOTE | 2018-09-12 07:30 | NUR ---
PATIENT WAS SLEEPING COMFORTABLY, EASILY AROUSABLE BY NAME. RESPIRATION EVEN, UNLABOR ON ROOM AIR. SKIN DRY AND WARM. IV PATENT AND INTACT. COMPLAINED OF ABDOMINAL PAIN 4/10, WILL MEDICATE PER ORDER. DRESSING WAS DRY AND INTACT WITH MODERATE AMOUNT OF DRAINAGE. PLAN OF CARE WAS DISCUSSED WITH PATIENT. BED AT LOW POSITION, SIDE RAILS UP. CALL LIGHT WITHIN REACH
[2018-09-12 08:00] VITALS: BP 111/53
[2018-09-12] MEDS: LORATADINE 10 MG TAB PO SCH (08:51)
[2018-09-12] MEDS: HYDROcodone/APAP 7.5/325 MG 1 TAB PO PRN (08:51)
[2018-09-12] MEDS: ENOXAPARIN 40 MG/0.4 ML SYR SUBQ SCH (08:53)
[2018-09-12] MEDS ORDERED: HYDROmorphone 1 MG/ML AMP IVP PRN (10:05)
--- NOTE | 2018-09-12 10:15 | NUR ---
PATIENT WAS AMBULATING AROUND THE HALLWAY, STEADY GAIT. NO DISTRESS NOTED AT THIS TIME
[2018-09-12] MEDS: NACL 0.9% 1,000 ML IV SCH ×2 (10:30→15:31)
[2018-09-12 10:50] VITALS: BP 141/76
[2018-09-12 11:15] VITALS: BP 132/67
--- NOTE | 2018-09-12 11:38 | NUR ---
WOUND DRESSING WAS CHANGED WITH PACKING PER ORDER BY EMELYN MONAE. DILAUDID WAS GIVEN PRIOR TO DRESSING CHANGE PER ORDER. ATIVAN WAS GIVEN FOR ANXIETY. PATIENT TOLERATED WELL. PICTURE WAS TAKEN
--- NOTE | 2018-09-12 11:59 | NUR ---
Abdominal wound care instructions explained to pt. primary RN and charge nurse. Please pre-medicated with Dilaudid as ordered. 2 nurses to perform dressing change with instructions as ordered. Also, inform primary RN to contact family members for wound care teaching. Pt. tolerated well with dressing change procedures today.
[2018-09-12] MEDS: GAUZE TP SCH (12:12)
--- NOTE | 2018-09-12 12:49 | NUR ---
Testing Engineer Note: I called and spoke with Kassandra at [facility] ([facility]) , address [address] [facility] [address]. She stated the cost for wound care services are $125 for first visit (evaluation and treatment) and after first time visit, it would be $90 per visit. I called and spoke with Deborah from [facility] , she stated they do not provide wound care services at their clinic. I met with patient at bedside to discuss wound care services post discharge. I provided him with information about [facility] ([facility]), including rates for wound care services. Per patient, he is in agreement with following up at this clinic and paying privately for services. He reported one of his concerns is obtaining pain medication. I provided him with a [employer] prescription Drug Savings Card . He thanked me for my assistance. I called [facility] ([facility]) again and spoke with Kassandra. Per Kassandra the earliest appt is on 09/18/18 at 10am, made appt for patient, made aware. I faxed patient's medical information to [facility], fax number .
--- NOTE | 2018-09-12 14:00 | NUR ---
PATIENT WAS AWAKE, ALERT, SITTING ON BED COMFORTABLY. RESPIRATION EVEN, UNLABOR ON ROOM AIR. NO DISTRESS NOTED AT THIS TIME
[2018-09-12 16:00] VITALS: BP 119/79
--- NOTE | 2018-09-12 16:36 | NUR ---
PATIENT WAS AWAKE, ALERT. RESPIRATION EVEN, UNLABOR ON ROOM AIR. DENIED PAIN AT THIS TIME. NO DISTRESS NOTED. CALL LIGHT WITHIN REACH
--- NOTE | 2018-09-12 18:23 | NUR ---
PATIENT WAS AWAKE, ALERT, EATING DINNER COMFORTABLY. RESPIRATION EVEN, UNLABOR ON ROOM AIR. DENIED PAIN. IV PATENT AND INTACT. NO DISTRESS NOTED AT THIS TIME
--- NOTE | 2018-09-12 19:27 | NUR ---
ENDORSEMENT GIVEN TO HEALTH AND FITNESS PROFESSOR NURSE. PATIENT IS STABLE AT THIS TIME
--- NOTE | 2018-09-12 19:29 | NUR ---
RECEIVED PATIENT AWAKE SITTING ON BED WITH IVF RUNNING INFUSING WELL. PATIENT AA0X4,AMBULATORY. RESPIRATION EVEN AND UNLABORED. DISCUSSED PLAN OF CARE AND VERBALIZED UNDERSTANDING. DENIES ABDOMINAL PAIN WITH ABDOMINAL BINDER IN PLACE FOR SUPPORT. EXPLAINED TO PATIENT TO UTILIZED CALL LIGHT FOR ASSISTANCE .FALL PRECAUTION IMPLEMENTED. WILL CONTINUE TO MONITOR.
--- NOTE | 2018-09-12 20:00 | NUR ---
V/S TAKEN AND RECORDED WNL. ALL NEEDS ATTENDED. NO SIGN OF DISTRESS NOTED AT THIS TIME. CALL LIGHT WITHIN REACH. WILL CONTINUE TO MONITOR.
[2018-09-12 23:48] VITALS: BP 121/59
--- NOTE | 2018-09-13 | NUR ---
SEEN PATIENT ASLEEP. V/S TAKEN WNL. SCHEDULE MEDICATION GIVEN TOLERATED WELL.ALL NEEDS ATTENDED. CALL LIGHT WITHIN REACH. DENIES ANY PAIN AT THIS TIME. WILL CONTINUE TO MONITOR
--- NOTE | 2018-09-13 02:00 | NUR ---
CHECKED PATIENT ASLEEP COMFORTABLY ON BED BUT EASILY AROUSABLE. FALL PRECAUTION IN PLACE. CALL LIGHT WITHIN REACH. DENIES PAIN WITH ABDOMINAL BINDER IN PLACE FOR SUPPORT.ALL NEEDS ATTENDED. WILL CONTINUE TO MONITOR.
--- NOTE | 2018-09-13 04:30 | NUR ---
AM CARE DONE.PATIENT SEEN ASLEEP AND DENIES PAIN AT THIS TIME. FALL PRECAUTION APPLIED. NO S/S OF DISTRESS NOTED. WILL CONTINUE.
[2018-09-13] MEDS: PIPER/TAZO 3.375GM/D5W PREMIX 50 ML IV SCH ×4 (05:14→23:10)
[2018-09-13] MEDS: NACL 0.9% 1,000 ML IV SCH ×2 (05:15→22:29)
--- NOTE | 2018-09-13 07:10 | NUR ---
RECEIVED PATIENT AWAKE IN BED. NO S/S OF DISTRESS. ABD BINDER IN PLACE. DRESSING CLEAN, DRY AND INTACT. NO S/S OF DISTRESS NOTED
--- NOTE | 2018-09-13 07:10 | NUR ---
GAVE REPORT TO AM SHIFT RN AT BEDSIDE FOR CONTINUITY OF CARE. CALL LIGHT WITHIN REACH. ALL NEEDS ATTENDED. PATIENT IN STABLE CONDITION.
[2018-09-13 07:31] LABS: BASOPHILS # (AUTO) 0.1 K/uL (0.00-0.22); BASOPHILS % (AUTO) 1.1 % (0.0-2.0); EOSINOPHILS # (AUTO) 0.4 K/uL (0-0.4); EOSINOPHILS % (AUTO) 4.9 % (0.0-4.0); HEMATOCRIT 30.2 % (36-52); LYMPHOCYTES # (AUTO) 1.7 K/uL (2.0-11.5); LYMPHOCYTES % (AUTO) 22.3 % (20.5-51.1); MEAN CORPUSCULAR HEMOGLOBIN 29 pg (27-31); MEAN CORPUSCULAR HGB CONC 33 g/dL (33-37); MEAN CORPUSCULAR VOLUME 88.5 fL (80-94); MONOCYTES # (AUTO) 0.6 K/uL (0.8-1.0); MONOCYTES % (AUTO) 7.9 % (1.7-9.3); NEUTROPHILS # (AUTO) 4.8 K/uL (1.8-7.7); NEUTROPHILS % (AUTO) 63.8 % (42.2-75.2); PLATELET COUNT (AUTO) 515 K/uL (140-450); RED BLOOD CELL COUNT(AUTO) 3.41 MIL/uL (4.20-6.10); WHITE BLOOD COUNT (AUTO) 7.6 K/uL (4.8-10.8)
[2018-09-13] MEDS ORDERED: SULF-59 PO (07:33)
[2018-09-13 07:53] VITALS: BP 99/58
[2018-09-13] MEDS: LORATADINE 10 MG TAB PO SCH (09:35)
[2018-09-13] MEDS: ENOXAPARIN 40 MG/0.4 ML SYR SUBQ SCH (09:39)
[2018-09-13] MEDS: HYDROmorphone 1 MG/ML AMP IVP PRN (10:45)
--- NOTE | 2018-09-13 11:15 | NUR ---
WOUND DRESSING CHANGED RECOMMENDED BY WOUND CARE NURSE. PATIENT'S MOM PRESENT IN THE ROOM AND WATCHED THE WOUND DRESSING PROCEDURE. MOM VERBALIZED UNDERSTANDING
[2018-09-13] MEDS: HYDROcodone/APAP 7.5/325 MG 1 TAB PO PRN (12:03)
[2018-09-13] MEDS: GAUZE TP SCH (13:05)
--- NOTE | 2018-09-13 14:44 | NUR ---
PATIENT AMBULATING AROUND THE UNIT. NO S/S OF DISTRESS NOTED
[2018-09-13 16:00] VITALS: BP 121/74
--- NOTE | 2018-09-13 19:25 | NUR ---
PATIENT REPORT GIVEN AT BEDSIDE. PATIENT ENDORSED IN STABLE CONDITION
--- NOTE | 2018-09-13 21:11 | NUR ---
PT RESTING COMFORTABLY IN BED. WATCHING TELEVISION. ALL NEEDS MET AT THIS TIME. CALL LIGHT WITHIN REACH.
[2018-09-13] MEDS: ZOLPIDEM 5 MG TAB PO PRN (22:29)
--- NOTE | 2018-09-13 22:29 | NUR ---
ADMINISTERED AMBIEN PER PTS REQUEST. ALL NEEDS MET AT THIS TIME. CALL LIGHT WITHIN REACH
[2018-09-13 23:38] VITALS: BP 119/76
--- NOTE | 2018-09-13 23:40 | NUR ---
VITAL SIGNS ARE WITHIN NORMAL LIMITS. PT REPORTS PAIN TOLERABLE. CALL LIGHT WITHIN REACH. WILL CONTINUE TO MONITOR.
--- NOTE | 2018-09-14 01:06 | NUR ---
PT SLEEPING. NO S/S OF DISTRESS. SAFETY MEASURES ARE IN PLACE. CALL LIGHT WITHIN REACH.
--- NOTE | 2018-09-14 04:05 | NUR ---
PT CAME BACK FROM BATHROOM HAS STEADY GAIT. PAIN IS TOLERABLE PER PATIENT. CALL LIGHT WITHIN REACH.
[2018-09-14] MEDS: PIPER/TAZO 3.375GM/D5W PREMIX 50 ML IV SCH ×2 (05:14→11:28)
[2018-09-14 05:37] LABS: BASOPHILS # (AUTO) 0.1 K/uL (0.00-0.22); BASOPHILS % (AUTO) 0.7 % (0.0-2.0); EOSINOPHILS # (AUTO) 0.3 K/uL (0-0.4); EOSINOPHILS % (AUTO) 4.4 % (0.0-4.0); HEMATOCRIT 32.9 % (36-52); HEMOGLOBIN 10.6 g/dL (12.0-18.0); LYMPHOCYTES # (AUTO) 1.6 K/uL (2.0-11.5); LYMPHOCYTES % (AUTO) 20.8 % (20.5-51.1); MEAN CORPUSCULAR HEMOGLOBIN 29 pg (27-31); MEAN CORPUSCULAR HGB CONC 32 g/dL (33-37); MEAN CORPUSCULAR VOLUME 89.5 fL (80-94); MONOCYTES # (AUTO) 0.6 K/uL (0.8-1.0); MONOCYTES % (AUTO) 8.1 % (1.7-9.3); NEUTROPHILS # (AUTO) 5.2 K/uL (1.8-7.7); PLATELET COUNT (AUTO) 559 K/uL (140-450); RED BLOOD CELL COUNT(AUTO) 3.67 MIL/uL (4.20-6.10); RED CELL DISTRIBUTION WIDTH 14.3 % (11.6-13.7); WHITE BLOOD COUNT (AUTO) 7.9 K/uL (4.8-10.8)
[2018-09-14 06:27] LABS: ANION GAP 11.1 (8-16); CREATININE 0.9 mg/dL (0.7-1.3); POTASSIUM 4.1 mmol/L (3.5-5.1)
--- NOTE | 2018-09-14 07:20 | NUR ---
ENDORSED PT TO DAY SHIFT RN. PT IS IN STABLE CONDITION.
--- NOTE | 2018-09-14 07:20 | NUR ---
RECEIVED PATIENT AWAKE IN BED. NO S/S OF DISTRESS. NO C/O PAIN AT THIS TIME. WILL CONTINUE TO MONITOR
[2018-09-14 07:40] VITALS: BP 106/66
[2018-09-14] MEDS: LORATADINE 10 MG TAB PO SCH (09:02)
[2018-09-14] MEDS: HYDROcodone/APAP 7.5/325 MG 1 TAB PO PRN (09:03)
[2018-09-14] MEDS: ENOXAPARIN 40 MG/0.4 ML SYR SUBQ SCH (09:08)
--- NOTE | 2018-09-14 10:14 | NUR ---
INFORMED PATIENT ABOUT HIS DISCHARGE. PER PATIENT HE WILL BE PICKED UP AROUND 1300
[2018-09-14] MEDS: HYDROmorphone 1 MG/ML AMP IVP PRN (10:40)
[2018-09-14] MEDS: GAUZE TP SCH (13:47)
--- NOTE | 2018-09-14 14:01 | NUR ---
PATIENT DISCHARGED TO HOME. PATIENT PICKED UP BY HIS BROTHER. DISCHARGE INSTRUCTIONS AND DISCHARGE PRESCRIPTIONS GIVEN. PATIENT VERBALIZED UNDERSTANDING. PATIENT PROVIDED WITH WOUND CARE SUPPLIES. IV LINE DISCONTINUED. PATIENT LEFT WITH ALL HIS BELONGINGS AND DISCHARGE PAPERS. PATIENT LEFT IN STABLE CONDITION
== END 2018-09-14 14:00 | disposition home or self-care (01) | DRG 853 ==
LOC: MED 20:34 → MTU 09-07 00:16 → MED 09-07 00:17
PROVIDERS: ADMIT General Practice; ATTEND General Practice
PROC: 3E02340 Introduction of Influenza Vaccine into Muscle, Percutaneous Approach (ICD-10-PCS; 2018-09-07)
PROC: 0JB80ZZ Excision of Abdomen Subcutaneous Tissue and Fascia, Open Approach (ICD-10-PCS; principal; 2018-09-07 10:00)
DX: A41.9 Sepsis, unspecified organism (principal); M72.6 Necrotizing fasciitis; E43 Unspecified severe protein-calorie malnutrition; N17.0 Acute kidney failure with tubular necrosis; L02.211 Cutaneous abscess of abdominal wall; L03.311 Cellulitis of abdominal wall; E66.9 Obesity, unspecified; E83.42 Hypomagnesemia; D64.9 Anemia, unspecified; R73.03 Prediabetes; E83.51 Hypocalcemia; Z68.30 Body mass index [BMI] 30.0-30.9, adult; Z71.3 Dietary counseling and surveillance; Z87.891 Personal history of nicotine dependence; Z23 Encounter for immunization
CPT/HCPCS: 36415; 71045; 80048; 80053; 80305; 81001; 82150; 82550; 83036; 83605; 83690; 83735; 83880; 84100; 84443; 85025; 85610; 85730; 87040; 87070; 87075; 87081; 87086; 87186; 87205; 88304; 90658; 96365; 96375; 99285; J0330; J0696; J1100; J1170; J1650; J1885; J2001; J2060; J2250; J2270; J2405; J2543; J2704; J3010; J3475; J3490; J7030; J7042; J7060; Q0092; Q9967